=== PATIENT | male | born 1935 | race Caucasian/White ===

== ENCOUNTER → 2016-05-01 | Outpatient (CLI) | payer MEDICARE, BC ==
[~2016-05-01] MED LIST: ACET325T14 PO; AMLO10TA2 PO; AMOX1TAB61 PO; ASPI-515 PO; BISA10SU2 PR; CARI350T PO; CYCL-259 PO; DOCU50CA6 PO; ENOX100S5 SQ; EZET10TA3 PO; FEBU40TA PO; FLAX1000 PO; HYDR25TA11 PO; HYDR2TAB13 PO; LANS30CA PO; LEVO112T4 PO; LEVO137T22 PO; LOSA100T6 PO; LOSA1TAB18 PO; META800T PO; METH4TAB PO; METO-93 PO; MULT-82 PO; OMEG1CAP56 PO; OXYC5CAP4 PO; OXYC5TAB3 PO; POLY17PO5 PO; PRED20TA PO; RED600CA2 PO; RIVA15TA PO; RIVA20TA PO; ROPI0.5T PO; SENN8.6C2 PO; TEMA15CA6 PO; TRAM100T13 PO; WARF2.5T PO; WARF5TAB PO; WARF5TAB7 PO; [UNRECOGNIZED DRUG - OTHER] PO
[2016-05-01 12:50] LABS: PATH.CAST-FLAG NOT PRESENT; SPERM-FLAG NOT PRESENT; SRC-FLAG NOT PRESENT; XTAL-FLAG NOT PRESENT; YLC-FLAG NOT PRESENT
[2016-05-01 12:52] LABS: BLOOD UREA NITROGEN 51 mg/dL (7-18)
[2016-05-01 12:55] LABS: ASPARTATE AMINO TRANSFERASE 18 U/L (15-37)
== END | disposition home or self-care (01) ==
LOC: CFH 10:53
PROVIDERS: ATTEND Internal Medicine Nephrology
DX: I12.9 Hypertensive chronic kidney disease with stage 1 through stage 4 chronic kidney disease, or unspecified chronic kidney disease (principal); N18.3 Chronic kidney disease, stage 3 (moderate); I48.2 Chronic atrial fibrillation; N25.81 Secondary hyperparathyroidism of renal origin; Q61.3 Polycystic kidney, unspecified
CPT/HCPCS: 36415; 80053; 81001; 82570; 84156

== ENCOUNTER → 2016-05-18 | Outpatient (CLI) | payer MEDICARE, BC ==
[2016-05-18 12:32] LABS: HEMOGLOBIN 13.9 g/dL (13.7-18.0)
[2016-05-18 12:54] LABS: ASPARTATE AMINO TRANSFERASE 17 U/L (15-37); BLOOD UREA NITROGEN 59 mg/dL (7-18)
== END | disposition home or self-care (01) ==
LOC: LAB 11:22
PROVIDERS: ATTEND Physician Assistant
DX: Z13.220 Encounter for screening for lipoid disorders (principal); Z12.5 Encounter for screening for malignant neoplasm of prostate; Z09 Encounter for follow-up examination after completed treatment for conditions other than malignant neoplasm; Z12.11 Encounter for screening for malignant neoplasm of colon; E03.9 Hypothyroidism, unspecified; E78.2 Mixed hyperlipidemia; R97.20 Elevated prostate specific antigen [PSA]; I48.0 Paroxysmal atrial fibrillation; K21.9 Gastro-esophageal reflux disease without esophagitis; R73.01 Impaired fasting glucose; E83.42 Hypomagnesemia; E21.5 Disorder of parathyroid gland, unspecified; R80.9 Proteinuria, unspecified; Q61.3 Polycystic kidney, unspecified; I12.0 Hypertensive chronic kidney disease with stage 5 chronic kidney disease or end stage renal disease; N18.4 Chronic kidney disease, stage 4 (severe); M54.5 Low back pain; R13.10 Dysphagia, unspecified; G47.00 Insomnia, unspecified; C61 Malignant neoplasm of prostate; M10.9 Gout, unspecified; R21 Rash and other nonspecific skin eruption; R00.1 Bradycardia, unspecified; R91.8 Other nonspecific abnormal finding of lung field; K92.1 Melena; R07.9 Chest pain, unspecified; Z86.718 Personal history of other venous thrombosis and embolism; Z85.038 Personal history of other malignant neoplasm of large intestine
CPT/HCPCS: 36415; 80053; 83735; 84443; 85025

== ENCOUNTER → 2016-06-01 | Outpatient (CLI) | payer MEDICARE, BC ==
[~2016-06-01] MED LIST changes: +REGADENOSON 0.4 MG/5 ML SYRINGE ONE
== END | disposition home or self-care (01) ==
LOC: CFH 09:11
PROVIDERS: ATTEND Physician Assistant
DX: I08.3 Combined rheumatic disorders of mitral, aortic and tricuspid valves (principal); I37.1 Nonrheumatic pulmonary valve insufficiency; I10 Essential (primary) hypertension; E03.9 Hypothyroidism, unspecified; E78.2 Mixed hyperlipidemia; I48.0 Paroxysmal atrial fibrillation; Z87.891 Personal history of nicotine dependence; Z85.038 Personal history of other malignant neoplasm of large intestine; Z85.46 Personal history of malignant neoplasm of prostate
CPT/HCPCS: 78452; 93017; 93306; A9502; J2785

== ENCOUNTER → 2016-06-26 | Outpatient (CLI) | payer MEDICARE, BC ==
[~2016-06-26] MED LIST changes: -REGADENOSON 0.4 MG/5 ML SYRINGE ONE
== END | disposition home or self-care (01) ==
LOC: CFH 10:14
PROVIDERS: ATTEND Physician Assistant
DX: Z13.220 Encounter for screening for lipoid disorders (principal); Z12.5 Encounter for screening for malignant neoplasm of prostate; Z12.11 Encounter for screening for malignant neoplasm of colon; E03.9 Hypothyroidism, unspecified; E78.2 Mixed hyperlipidemia; I12.9 Hypertensive chronic kidney disease with stage 1 through stage 4 chronic kidney disease, or unspecified chronic kidney disease; N18.4 Chronic kidney disease, stage 4 (severe); K21.9 Gastro-esophageal reflux disease without esophagitis; R97.20 Elevated prostate specific antigen [PSA]; I48.0 Paroxysmal atrial fibrillation; R73.01 Impaired fasting glucose; E83.42 Hypomagnesemia; E21.5 Disorder of parathyroid gland, unspecified; R80.9 Proteinuria, unspecified; Q61.3 Polycystic kidney, unspecified; M54.5 Low back pain; G47.00 Insomnia, unspecified; C61 Malignant neoplasm of prostate; M10.9 Gout, unspecified; K92.1 Melena; R07.9 Chest pain, unspecified; R93.8 Abnormal findings on diagnostic imaging of other specified body structures; R94.39 Abnormal result of other cardiovascular function study; Z86.718 Personal history of other venous thrombosis and embolism; Z85.038 Personal history of other malignant neoplasm of large intestine
CPT/HCPCS: 36415; 80061; 80076; 83036; 84443

== ENCOUNTER → 2016-08-14 | Outpatient (CLI) | payer MEDICARE, BC ==
[~2016-08-14] MED LIST changes: -HYDR2TAB13 PO; +HYDR2TAB29 PO
== END | disposition home or self-care (01) ==
LOC: PETCFH 09:31
PROVIDERS: ATTEND Specialist
DX: C61 Malignant neoplasm of prostate (principal)
CPT/HCPCS: 78306; A9503

== ENCOUNTER → 2016-08-31 | Outpatient (CLI) | payer MEDICARE, BC ==
[2016-08-31 13:09] LABS: BLOOD UREA NITROGEN 48 mg/dL (7-18)
== END | disposition home or self-care (01) ==
LOC: LAB 09:29
PROVIDERS: ATTEND Specialist
DX: R93.5 Abnormal findings on diagnostic imaging of other abdominal regions, including retroperitoneum (principal); R10.32 Left lower quadrant pain
CPT/HCPCS: 36415; 80048

== ENCOUNTER → 2016-09-25 | Outpatient (CLI) | payer MEDICARE, BC ==
[2016-09-25 12:52] LABS: BLOOD UREA NITROGEN 42 mg/dL (7-18)
[2016-09-25 12:54] LABS: HEMOGLOBIN 13.2 g/dL (13.7-18.0); WHITE BLOOD COUNT 6.8 x10^3/uL (3.4-10)
[2016-09-25 12:59] LABS: ASPARTATE AMINO TRANSFERASE 19 U/L (15-37)
== END | disposition home or self-care (01) ==
LOC: LAB 09:36
PROVIDERS: ATTEND Physician Assistant
DX: Z13.220 Encounter for screening for lipoid disorders (principal); Z12.5 Encounter for screening for malignant neoplasm of prostate; Z12.11 Encounter for screening for malignant neoplasm of colon; E03.9 Hypothyroidism, unspecified; E78.2 Mixed hyperlipidemia; I12.9 Hypertensive chronic kidney disease with stage 1 through stage 4 chronic kidney disease, or unspecified chronic kidney disease; E11.22 Type 2 diabetes mellitus with diabetic chronic kidney disease; N18.4 Chronic kidney disease, stage 4 (severe); C61 Malignant neoplasm of prostate; R80.9 Proteinuria, unspecified; Q61.3 Polycystic kidney, unspecified; R97.20 Elevated prostate specific antigen [PSA]; I48.0 Paroxysmal atrial fibrillation; K21.9 Gastro-esophageal reflux disease without esophagitis; E83.42 Hypomagnesemia; M54.5 Low back pain; G47.00 Insomnia, unspecified; R91.8 Other nonspecific abnormal finding of lung field; K92.1 Melena; R07.9 Chest pain, unspecified; R93.8 Abnormal findings on diagnostic imaging of other specified body structures; R94.39 Abnormal result of other cardiovascular function study; Z85.038 Personal history of other malignant neoplasm of large intestine; Z86.718 Personal history of other venous thrombosis and embolism
CPT/HCPCS: 36415; 80053; 80061; 85025

== ENCOUNTER → 2016-10-19 | Outpatient (CLI) | payer MEDICARE, BC ==
[~2016-10-19] MED LIST changes: +ASCO500T8 PO; +CALCIUM PO; +EZET10TA18 PO; -EZET10TA3 PO; +FLAXSEED PO; +FURO20TA3 PO; +HYDR-3237 PO; +HYDR-3342 PO; +ISOS10TA6 PO; -LEVO137T22 PO; +LEVO137T25 PO; +MAGNESIUM PO; +MULT-224 PO; -MULT-82 PO; +NITR0.4T28 SL; +OXYC5CAP2 PO; -OXYC5CAP4 PO; +ROSU10TA PO; +TEMA15CA PO
[2016-10-19 10:18] LABS: HEMATOCRIT 40.3 % (39.2-51.8); HEMOGLOBIN 13.6 g/dL (13.7-18.0); WHITE BLOOD COUNT 8.3 x10^3/uL (3.4-10)
[2016-10-19 10:29] LABS: BLOOD UREA NITROGEN 54 mg/dL (7-18)
[2016-10-19 10:32] LABS: ASPARTATE AMINO TRANSFERASE 18 U/L (15-37)
== END | disposition home or self-care (01) ==
LOC: STAR 09:08
PROVIDERS: ATTEND Specialist
DX: Z01.818 Encounter for other preprocedural examination (principal); K62.5 Hemorrhage of anus and rectum
CPT/HCPCS: 36415; 80053; 85025; 85610; 85730; 93005

== ENCOUNTER 2016-10-20 11:36 | Inpatient (IN) | payer MEDICARE, BC ==
[~2016-10-20] VITALS: Ht 172.7 cm; Wt 102.3 kg
[2016-10-20] MEDS ORDERED: SODIUM CHLORIDE FLUSH 10ML SYR IVF ONE (12:00)
[2016-10-20 12:21] LABS: HEMATOCRIT 39.6 % (39.2-51.8); HEMOGLOBIN 13.1 g/dL (13.7-18.0); WHITE BLOOD COUNT 8.7 x10^3/uL (3.4-10)
[2016-10-20 12:31] LABS: PATH.CAST-FLAG NOT PRESENT; SPERM-FLAG NOT PRESENT; SRC-FLAG NOT PRESENT; XTAL-FLAG NOT PRESENT; YLC-FLAG NOT PRESENT
[2016-10-20 12:34] LABS: BLOOD UREA NITROGEN 52 mg/dL (7-18)
[2016-10-20 12:41] LABS: ASPARTATE AMINO TRANSFERASE 18 U/L (15-37)
[2016-10-20 12:45] LABS: IS PT STATUS REG ER OR PRE ER? YES
[2016-10-20] MEDS ORDERED: ONDANSETRON 2MG/ML, 2ML IVPush PRN (18:30)
[2016-10-20] MEDS ORDERED: ONDANSETRON ODT 4 MG PO PRN (18:30)
[2016-10-20] MEDS ORDERED: POLYETHYLENE GLYCOL 17 GM PACKET PO PRN (18:30)
[2016-10-20] MEDS ORDERED: LABETALOL 5MG/ML, 20ML IVPush PRN (18:30)
[2016-10-20 19:50] VITALS: BP 156/69
[2016-10-20] MEDS: TEMAZEPAM 15 MG CAPSULE PO SCH (22:02)
[2016-10-21] VITALS (7 sets, daily range): BP systolic 123–152; BP diastolic 53–77
[2016-10-21 05:36] LABS: HEMATOCRIT 36.9 % (39.2-51.8); HEMOGLOBIN 12.4 g/dL (13.7-18.0); WHITE BLOOD COUNT 7.8 x10^3/uL (3.4-10)
[2016-10-21 06:13] LABS: ASPARTATE AMINO TRANSFERASE 17 U/L (15-37); BLOOD UREA NITROGEN 52 mg/dL (7-18)
[2016-10-21] MEDS: PANTOPROZOLE 40MG TABLET PO SCH (07:30)
[2016-10-21] MEDS ORDERED: TEMPLATE NON-FORMULARY MED. (Lansoprazole** 30 MG) PO SCH (09:00)
[2016-10-21] MEDS: MULTIVITAMIN 1 TABLET PO SCH (09:00)
[2016-10-21] MEDS: ASCORBIC ACID 500 MG TABLET PO SCH (09:00)
[2016-10-21] MEDS: ISOSORBIDE MONONITRATE ER 30 MG TABLET PO SCH (09:50)
[2016-10-21] MEDS: LEVOTHYROXINE 112 MCG TABLET PO SCH (09:50)
[2016-10-21] MEDS: SENNA/DOCUSATE TABLET PO SCH (09:50)
[2016-10-21] MEDS: LOSARTAN 50MG TABLET PO SCH (09:50)
[2016-10-21] MEDS: AMLODIPINE 5 MG TABLET PO SCH (09:52)
[2016-10-21] MEDS: TEMAZEPAM 15 MG CAPSULE PO SCH (22:42)
[2016-10-22 05:32] VITALS: BP 142/72
[2016-10-22 05:36] VITALS: BP 146/76
[2016-10-22 05:37] VITALS: BP 137/79
[2016-10-22 05:49] LABS: HEMATOCRIT 37.4 % (39.2-51.8); HEMOGLOBIN 12.5 g/dL (13.7-18.0); WHITE BLOOD COUNT 7.3 x10^3/uL (3.4-10)
[2016-10-22 06:00] LABS: BLOOD UREA NITROGEN 49 mg/dL (7-18)
[2016-10-22 06:06] LABS: ASPARTATE AMINO TRANSFERASE 31 U/L (15-37)
[2016-10-22] MEDS: PANTOPROZOLE 40MG TABLET PO SCH (07:30)
[2016-10-22 08:10] VITALS: BP_SYST 137; BP_SYST 145; BP_SYST 150; BP_DIAS 72; BP_DIAS 77; BP_DIAS 78
[2016-10-22] MEDS: MULTIVITAMIN 1 TABLET PO SCH (08:11)
[2016-10-22] MEDS: ASCORBIC ACID 500 MG TABLET PO SCH (08:11)
[2016-10-22] MEDS: SENNA/DOCUSATE TABLET PO SCH (08:14)
[2016-10-22] MEDS: AMLODIPINE 5 MG TABLET PO SCH (08:14)
[2016-10-22] MEDS: LOSARTAN 50MG TABLET PO SCH (08:14)
[2016-10-22] MEDS: ISOSORBIDE MONONITRATE ER 30 MG TABLET PO SCH (08:15)
[2016-10-22] MEDS: LEVOTHYROXINE 112 MCG TABLET PO SCH (08:15)
[2016-10-22 14:23] VITALS: BP 143/60
[2016-10-22] MEDS ORDERED: PHARMACY MAY ADJ FOR RENAL FX MC PRN (14:30)
[2016-10-22] MEDS ORDERED: PHYTONADIONE 10 MG/ML, 1ML SQ ONE (15:30)
[2016-10-22 15:41] LABS: HEMATOCRIT 37.3 % (39.2-51.8); HEMOGLOBIN 12.5 g/dL (13.7-18.0)
[2016-10-22] MEDS: SODIUM CHLORIDE 0.9% 1,000 ML IV SCH (17:43)
[2016-10-22 19:55] VITALS: BP 136/69
[2016-10-22] MEDS ORDERED: GOLYTELY 4,000ML ORAL.SOL PO ONE (21:00)
[2016-10-22 21:17] LABS: HEMATOCRIT 39.6 % (39.2-51.8); HEMOGLOBIN 13.1 g/dL (13.7-18.0)
[2016-10-23 02:00] VITALS: BP 129/79
[2016-10-23 05:36] LABS: BLOOD UREA NITROGEN 45 mg/dL (7-18)
[2016-10-23 05:41] LABS: ASPARTATE AMINO TRANSFERASE 20 U/L (15-37)
[2016-10-23 05:44] LABS: HEMATOCRIT 39.6 % (39.2-51.8); HEMOGLOBIN 13.3 g/dL (13.7-18.0); WHITE BLOOD COUNT 11.5 x10^3/uL (3.4-10)
[2016-10-23 07:58] VITALS: BP 157/76
[2016-10-23] MEDS: LEVOTHYROXINE 112 MCG TABLET PO SCH (08:25)
[2016-10-23] MEDS: HYDROcodone/APAP 5/325 TABLET PO PRN ×2 (08:32→18:10)
[2016-10-23] MEDS: AMLODIPINE 5 MG TABLET PO SCH (08:33)
[2016-10-23] MEDS: PANTOPROZOLE 40MG TABLET PO SCH (08:33)
[2016-10-23] MEDS: LOSARTAN 50MG TABLET PO SCH (08:34)
[2016-10-23] MEDS: ISOSORBIDE MONONITRATE ER 30 MG TABLET PO SCH (08:34)
[2016-10-23] MEDS: SODIUM CHLORIDE 0.9% 1,000 ML IV SCH ×2 (08:35→21:09)
[2016-10-23] MEDS: SENNA/DOCUSATE TABLET PO SCH (08:40)
[2016-10-23] MEDS: MULTIVITAMIN 1 TABLET PO SCH (08:40)
[2016-10-23] MEDS: ASCORBIC ACID 500 MG TABLET PO SCH (08:41)
[2016-10-23] MEDS ORDERED: HYDROmorphone 1 MG/ML, 1ML IV PRN (14:30)
[2016-10-23] MEDS ORDERED: HYDROcodone/APAP 7.5-325MG/15ML UDC PO PRN (14:30)
[2016-10-23] MEDS ORDERED: LABETALOL 5MG/ML, 20ML IV PRN (14:30)
[2016-10-23] MEDS ORDERED: hydrALAzine 20 MG/ML, 1ML IV PRN (14:30)
[2016-10-23] MEDS ORDERED: OXYcodone 5 MG/5 ML ORAL.SOL UDC PO PRN (14:30)
[2016-10-23] MEDS ORDERED: FENTANYL PF 100 MCG/2ML IV PRN (14:30)
[2016-10-23] MEDS ORDERED: ONDANSETRON 2MG/ML, 2ML IVPush PRN (14:30)
[2016-10-23 17:00] VITALS: BP 137/65
[2016-10-23] MEDS ORDERED: WARFARIN 5 MG TABLET PO-COUM ONE (18:30)
[2016-10-23] MEDS ORDERED: PROPOFOL 10 MG/ML, 20ML ONE (19:07)
[2016-10-23] MEDS ORDERED: ONDANSETRON 2MG/ML, 2ML ONE (19:07)
[2016-10-23 20:00] VITALS: BP 115/64
[2016-10-24 02:04] VITALS: BP 127/65
[2016-10-24] MEDS: PANTOPROZOLE 40MG TABLET PO SCH (07:44)
[2016-10-24] MEDS: SODIUM CHLORIDE 0.9% 1,000 ML IV SCH (07:44)
[2016-10-24 08:30] VITALS: BP 126/73
[2016-10-24] MEDS: LOSARTAN 50MG TABLET PO SCH (09:08)
[2016-10-24] MEDS: AMLODIPINE 5 MG TABLET PO SCH (09:08)
[2016-10-24] MEDS: ASCORBIC ACID 500 MG TABLET PO SCH (09:08)
[2016-10-24] MEDS: MULTIVITAMIN 1 TABLET PO SCH (09:09)
[2016-10-24] MEDS: ISOSORBIDE MONONITRATE ER 30 MG TABLET PO SCH (09:09)
[2016-10-24] MEDS: SENNA/DOCUSATE TABLET PO SCH (09:09)
[2016-10-24] MEDS: LEVOTHYROXINE 112 MCG TABLET PO SCH (09:22)
[2016-10-24] MEDS ORDERED: HEPARIN 5,000 UNITS/ML, 1ML IV ONE (10:30)
[2016-10-24] MEDS ORDERED: HEPARIN 25,000 UNITS/500ML PMX 500 ML IV PRN (10:30)
[2016-10-24 12:27] LABS: HEMATOCRIT 35.2 % (39.2-51.8); HEMOGLOBIN 11.6 g/dL (13.7-18.0); WHITE BLOOD COUNT 7.8 x10^3/uL (3.4-10)
[2016-10-24 13:00] VITALS: BP 128/68
[2016-10-24] MEDS: HEPARIN 25,000 UNITS/500ML PMX 500 ML IV PRN (13:42)
[2016-10-24] MEDS: NITROGLYCERIN 0.4 MG BOTTLE (25 TABS) SL SCH ×2 (14:04→14:09)
[2016-10-24] MEDS ORDERED: MORPHINE SULFATE 4 MG/ML, 1ML ONE (14:05)
[2016-10-24] MEDS ORDERED: morphine SULFATE 10 MG/ML, 1ML IVPush ONE (14:30)
[2016-10-24 14:38] LABS: ASPARTATE AMINO TRANSFERASE 25 U/L (15-37); BLOOD UREA NITROGEN 38 mg/dL (7-18)
[2016-10-24 14:53] LABS: IS PT STATUS REG ER OR PRE ER? NO
[2016-10-24 17:07] LABS: PATH.CAST-FLAG NOT PRESENT; SPERM-FLAG NOT PRESENT; SRC-FLAG NOT PRESENT; XTAL-FLAG NOT PRESENT; YLC-FLAG NOT PRESENT
[2016-10-24] MEDS: METOPROLOL SUCCINATE 50 MG TAB.ER.24H PO SCH (17:07)
[2016-10-24] MEDS: EZETIMIBE 10 MG TABLET PO SCH (17:08)
[2016-10-24] MEDS ORDERED: WARFARIN 10 MG TABLET PO-COUM ONE (18:00)
[2016-10-24 19:19] VITALS: BP 118/68
[2016-10-24] MEDS: HEPARIN 5,000 UNITS/ML, 1ML IV PRN (21:52)
[2016-10-25 02:00] VITALS: BP 135/69
[2016-10-25 04:39] LABS: HEMATOCRIT 33.7 % (39.2-51.8); HEMOGLOBIN 11.3 g/dL (13.7-18.0); WHITE BLOOD COUNT 7.1 x10^3/uL (3.4-10)
[2016-10-25 04:42] LABS: BLOOD UREA NITROGEN 40 mg/dL (7-18)
[2016-10-25 04:47] LABS: ASPARTATE AMINO TRANSFERASE 21 U/L (15-37)
[2016-10-25] MEDS: HEPARIN 5,000 UNITS/ML, 1ML IV PRN (04:56)
[2016-10-25] MEDS: METOPROLOL SUCCINATE 50 MG TAB.ER.24H PO SCH (04:57)
[2016-10-25 08:29] VITALS: BP 138/68
[2016-10-25] MEDS: ISOSORBIDE MONONITRATE ER 30 MG TABLET PO SCH (08:51)
[2016-10-25] MEDS: AMLODIPINE 5 MG TABLET PO SCH (08:52)
[2016-10-25] MEDS: LEVOTHYROXINE 112 MCG TABLET PO SCH (08:52)
[2016-10-25] MEDS: MULTIVITAMIN 1 TABLET PO SCH (08:52)
[2016-10-25] MEDS: PANTOPROZOLE 40MG TABLET PO SCH (08:52)
[2016-10-25] MEDS: ASCORBIC ACID 500 MG TABLET PO SCH (08:52)
[2016-10-25] MEDS: SENNA/DOCUSATE TABLET PO SCH (08:52)
[2016-10-25] MEDS: LOSARTAN 50MG TABLET PO SCH (08:52)
[2016-10-25] MEDS: EZETIMIBE 10 MG TABLET PO SCH (09:02)
[2016-10-25 11:57] LABS: IS PT STATUS REG ER OR PRE ER? NO
[2016-10-25] MEDS: HEPARIN 25,000 UNITS/500ML PMX 500 ML IV PRN (12:37)
[2016-10-25 14:00] VITALS: BP 115/64
[2016-10-25] MEDS ORDERED: WARFARIN 7.5 MG TABLET PO-COUM ONE (18:00)
[2016-10-25 18:40] VITALS: BP 110/57
[2016-10-26 02:24] VITALS: BP 138/78
[2016-10-26] MEDS: METOPROLOL SUCCINATE 50 MG TAB.ER.24H PO SCH (06:04)
[2016-10-26] MEDS: LEVOTHYROXINE 112 MCG TABLET PO SCH (06:05)
[2016-10-26 06:27] LABS: HEMATOCRIT 32.9 % (39.2-51.8); HEMOGLOBIN 11.1 g/dL (13.7-18.0); WHITE BLOOD COUNT 7.2 x10^3/uL (3.4-10)
[2016-10-26 06:34] LABS: ANTI-Xa-UNFRACTIONATED HEP 0.35 IU/mL (0.30-0.70)
[2016-10-26 06:42] LABS: BLOOD UREA NITROGEN 40 mg/dL (7-18)
[2016-10-26 06:47] LABS: ASPARTATE AMINO TRANSFERASE 20 U/L (15-37)
[2016-10-26 07:02] VITALS: BP 139/73
[2016-10-26] MEDS: AMLODIPINE 5 MG TABLET PO SCH (10:04)
[2016-10-26] MEDS: EZETIMIBE 10 MG TABLET PO SCH (10:04)
[2016-10-26] MEDS: MULTIVITAMIN 1 TABLET PO SCH (10:04)
[2016-10-26] MEDS: ASCORBIC ACID 500 MG TABLET PO SCH (10:06)
[2016-10-26] MEDS: LOSARTAN 50MG TABLET PO SCH (10:06)
[2016-10-26] MEDS: ISOSORBIDE MONONITRATE ER 30 MG TABLET PO SCH (10:06)
[2016-10-26] MEDS: PANTOPROZOLE 40MG TABLET PO SCH (10:06)
[2016-10-26] MEDS: SENNA/DOCUSATE TABLET PO SCH (10:08)
[2016-10-26] MEDS: HEPARIN 25,000 UNITS/500ML PMX 500 ML IV PRN (12:21)
[2016-10-26] MEDS: HYDROcodone/APAP 5/325 TABLET PO PRN ×2 (12:42→19:37)
[2016-10-26] MEDS ORDERED: MAGNESIUM SULFATE PMX 2GM/50ML 50 ML IV ONE (13:00)
[2016-10-26 13:45] VITALS: BP 141/63
[2016-10-26] MEDS ORDERED: WARFARIN 5 MG TABLET PO-COUM SCH (18:00)
[2016-10-26 20:00] VITALS: BP 138/64
[2016-10-27 02:08] VITALS: BP 132/67
[2016-10-27 05:09] LABS: HEMATOCRIT 33.2 % (39.2-51.8); HEMOGLOBIN 11.1 g/dL (13.7-18.0); WHITE BLOOD COUNT 6.7 x10^3/uL (3.4-10)
[2016-10-27 05:14] LABS: ANTI-Xa-UNFRACTIONATED HEP 0.19 IU/mL (0.30-0.70)
[2016-10-27 05:22] LABS: ASPARTATE AMINO TRANSFERASE 23 U/L (15-37); BLOOD UREA NITROGEN 38 mg/dL (7-18)
[2016-10-27] MEDS: HEPARIN 5,000 UNITS/ML, 1ML IV PRN (05:46)
[2016-10-27] MEDS: LEVOTHYROXINE 112 MCG TABLET PO SCH (05:47)
[2016-10-27] MEDS: METOPROLOL SUCCINATE 50 MG TAB.ER.24H PO SCH (05:47)
[2016-10-27] MEDS ORDERED: METO-93 PO (07:11)
[2016-10-27] MEDS ORDERED: HYDR-3342 PO (07:15)
[2016-10-27 07:40] VITALS: BP 148/72
[2016-10-27] MEDS: AMLODIPINE 5 MG TABLET PO SCH (08:28)
[2016-10-27] MEDS: MULTIVITAMIN 1 TABLET PO SCH (08:29)
[2016-10-27] MEDS: SENNA/DOCUSATE TABLET PO SCH (08:29)
[2016-10-27] MEDS: PANTOPROZOLE 40MG TABLET PO SCH (08:29)
[2016-10-27] MEDS: ISOSORBIDE MONONITRATE ER 30 MG TABLET PO SCH (08:29)
[2016-10-27] MEDS: LOSARTAN 50MG TABLET PO SCH (08:29)
[2016-10-27] MEDS: ASCORBIC ACID 500 MG TABLET PO SCH (08:29)
[2016-10-27] MEDS: EZETIMIBE 10 MG TABLET PO SCH (08:30)
[2016-10-27] MEDS ORDERED: WARFARIN 3 MG TABLET PO-COUM SCH (18:00)
== END 2016-10-27 10:31 | disposition home or self-care (01) | DRG 378 ==
LOC: ED 12:20 → EDIP 12:28 → 4WST 15:15
PROVIDERS: ADMIT Hospitalist; ATTEND Hospitalist
PROC: 0DBN8ZX Excision of Sigmoid Colon, Via Natural or Artificial Opening Endoscopic, Diagnostic (ICD-10-PCS; 2016-10-23)
PROC: 0DBM8ZX Excision of Descending Colon, Via Natural or Artificial Opening Endoscopic, Diagnostic (ICD-10-PCS; 2016-10-23)
PROC: 0D5F8ZZ Destruction of Right Large Intestine, Via Natural or Artificial Opening Endoscopic (ICD-10-PCS; 2016-10-23)
PROC: 0DBH8ZX Excision of Cecum, Via Natural or Artificial Opening Endoscopic, Diagnostic (ICD-10-PCS; principal; 2016-10-23 14:00)
DX: K55.21 Angiodysplasia of colon with hemorrhage (principal); I13.0 Hypertensive heart and chronic kidney disease with heart failure and stage 1 through stage 4 chronic kidney disease, or unspecified chronic kidney disease; D68.69 Other thrombophilia; I50.30 Unspecified diastolic (congestive) heart failure; K62.5 Hemorrhage of anus and rectum; I48.0 Paroxysmal atrial fibrillation; R55 Syncope and collapse; J98.11 Atelectasis; D12.0 Benign neoplasm of cecum; K64.4 Residual hemorrhoidal skin tags; K64.8 Other hemorrhoids; K63.5 Polyp of colon; D12.4 Benign neoplasm of descending colon; D12.5 Benign neoplasm of sigmoid colon; I99.8 Other disorder of circulatory system; K57.30 Diverticulosis of large intestine without perforation or abscess without bleeding; E78.5 Hyperlipidemia, unspecified; E03.9 Hypothyroidism, unspecified; N18.9 Chronic kidney disease, unspecified; F17.210 Nicotine dependence, cigarettes, uncomplicated; I25.10 Atherosclerotic heart disease of native coronary artery without angina pectoris; Z66 Do not resuscitate; G89.29 Other chronic pain; Z82.5 Family history of asthma and other chronic lower respiratory diseases; Z79.899 Other long term (current) drug therapy; Z91.048 Other nonmedicinal substance allergy status; Z79.01 Long term (current) use of anticoagulants; Z85.46 Personal history of malignant neoplasm of prostate
CPT/HCPCS: 36415; 71010; 74000; 80053; 80061; 81001; 82962; 83735; 83880; 84439; 84484; 85014; 85018; 85025; 85520; 85610; 88305; 93005; 93306; 99285; J1644; J2405; J2704; J3430; Q0162; J2270; J3475; J7030

== ENCOUNTER → 2016-11-06 | Outpatient (CLI) | payer MEDICARE, BC ==
[~2016-11-06] MED LIST changes: -OMEG1CAP56 PO; +OMEG1CAP83 PO
[2016-11-06 12:22] LABS: PATH.CAST-FLAG NOT PRESENT; SPERM-FLAG NOT PRESENT; SRC-FLAG NOT PRESENT; XTAL-FLAG NOT PRESENT; YLC-FLAG NOT PRESENT
[2016-11-06 12:54] LABS: ASPARTATE AMINO TRANSFERASE 15 U/L (15-37); BLOOD UREA NITROGEN 58 mg/dL (7-18)
== END | disposition home or self-care (01) ==
LOC: CFH 11:09
PROVIDERS: ATTEND Internal Medicine Nephrology
DX: I13.10 Hypertensive heart and chronic kidney disease without heart failure, with stage 1 through stage 4 chronic kidney disease, or unspecified chronic kidney disease (principal); N18.4 Chronic kidney disease, stage 4 (severe); Q61.3 Polycystic kidney, unspecified; N25.81 Secondary hyperparathyroidism of renal origin; I48.2 Chronic atrial fibrillation; R80.3 Bence Jones proteinuria
CPT/HCPCS: 36415; 80053; 81001; 82570; 83735; 84156

== ENCOUNTER → 2017-01-01 | Outpatient (CLI) | payer MEDICARE, BC ==
[~2017-01-01] MED LIST changes: -LOSA1TAB18 PO; +LOSA1TAB25 PO; +OMEG-172 PO; -OMEG1CAP83 PO
[2017-01-01 12:43] LABS: PATH.CAST-FLAG NOT PRESENT; SPERM-FLAG NOT PRESENT; SRC-FLAG NOT PRESENT; XTAL-FLAG NOT PRESENT; YLC-FLAG NOT PRESENT
[2017-01-01 12:48] LABS: HEMOGLOBIN 13.5 g/dL (13.7-18.0); WHITE BLOOD COUNT 8.1 x10^3/uL (3.4-10)
[2017-01-01 12:56] LABS: BLOOD UREA NITROGEN 59 mg/dL (7-18)
[2017-01-01 13:00] LABS: ASPARTATE AMINO TRANSFERASE 17 U/L (15-37)
== END | disposition home or self-care (01) ==
LOC: LAB 10:08
PROVIDERS: ATTEND Internal Medicine Nephrology
DX: I12.0 Hypertensive chronic kidney disease with stage 5 chronic kidney disease or end stage renal disease (principal); N18.4 Chronic kidney disease, stage 4 (severe); N25.81 Secondary hyperparathyroidism of renal origin; I48.2 Chronic atrial fibrillation; Q61.3 Polycystic kidney, unspecified; R80.3 Bence Jones proteinuria
CPT/HCPCS: 36415; 80053; 81001; 82570; 83735; 84100; 84156; 85025

== ENCOUNTER → 2017-01-11 | Outpatient (CLI) | payer MEDICARE, BC | END | disposition home or self-care (01) | LOC: CFH 10:35 | PROVIDERS: ATTEND Physician Assistant | DX: Z13.220 Encounter for screening for lipoid disorders (principal); Z12.11 Encounter for screening for malignant neoplasm of colon; Z12.5 Encounter for screening for malignant neoplasm of prostate; Z09 Encounter for follow-up examination after completed treatment for conditions other than malignant neoplasm; I12.0 Hypertensive chronic kidney disease with stage 5 chronic kidney disease or end stage renal disease; E11.22 Type 2 diabetes mellitus with diabetic chronic kidney disease; N18.6 End stage renal disease; E03.9 Hypothyroidism, unspecified; E78.2 Mixed hyperlipidemia; I48.0 Paroxysmal atrial fibrillation; Z86.718 Personal history of other venous thrombosis and embolism; K21.9 Gastro-esophageal reflux disease without esophagitis; E83.42 Hypomagnesemia; R80.9 Proteinuria, unspecified; Q61.3 Polycystic kidney, unspecified; N18.4 Chronic kidney disease, stage 4 (severe); G47.00 Insomnia, unspecified; C61 Malignant neoplasm of prostate; M10.9 Gout, unspecified; R00.1 Bradycardia, unspecified; R91.8 Other nonspecific abnormal finding of lung field; K92.1 Melena; R07.9 Chest pain, unspecified; R93.8 Abnormal findings on diagnostic imaging of other specified body structures; R94.39 Abnormal result of other cardiovascular function study; M54.2 Cervicalgia; L98.9 Disorder of the skin and subcutaneous tissue, unspecified; R97.20 Elevated prostate specific antigen [PSA] | CPT/HCPCS: 36415; 83036; 84436; 84443; 84481 ==

== ENCOUNTER → 2017-03-12 | Outpatient (CLI) | payer MEDICARE, BC ==
[2017-03-12 12:57] LABS: ALBUMIN 3.4 g/dL (3.4-5.0); ANION GAP 7 mmol/L (5-15); CALCIUM 8.1 mg/dL (8.5-10.1); CHLORIDE 112 mmol/L (98-107)
[2017-03-12 13:01] LABS: ALANINE AMINOTRANSFERASE 23 U/L (12-78); ALKALINE PHOSPHATASE 45 U/L (45-117); BILIRUBIN,TOTAL 0.6 mg/dL (0.2-1.0); CREATININE 4.69 mg/dL (0.7-1.3)
== END | disposition home or self-care (01) ==
LOC: CFH 10:10
PROVIDERS: ATTEND Internal Medicine Nephrology
DX: N25.81 Secondary hyperparathyroidism of renal origin (principal); I12.0 Hypertensive chronic kidney disease with stage 5 chronic kidney disease or end stage renal disease; N18.5 Chronic kidney disease, stage 5; I48.2 Chronic atrial fibrillation; Q61.3 Polycystic kidney, unspecified; R80.3 Bence Jones proteinuria
CPT/HCPCS: 36415; 80053